=== PATIENT | female | born 1970 ===

== ENCOUNTER → 2022-04-09 11:08 | Outpatient (CLI) | payer OTHER, SELFPAY ==
--- NOTE | 2022-04-09 11:13 | DI.MRI.S_ITS ---
PROCEDURE: MR HEAD/BRAIN WO CON INDICATIONS: ATAXIA/DYSARTHIA TECHNIQUE: Noncontrast axial T1 spin echo, axial T2 fast spin echo, sagittal and axial FLAIR, coronal T2 fast spin echo, axial gradient echo, axial diffusion and ADC through the brain. COMPARISON: None. FINDINGS: Image quality: Excellent. CSF Spaces: Basal cisterns are patent. No extra-axial fluid collections. Ventricles are normal in size and shape. Brain: Mild global cerebral volume loss and moderate chronic microvascular ischemic changes. No intracranial masses or hemorrhage. Parra/white matter interface is normal. Brainstem appears normal. Diffusion-weighted images demonstrate no acute ischemic insult. No chronic ischemic insults. Normal intravascular flow voids are present. Skull and face: Calvarium has normal marrow signal. Orbits appear normal. Sinuses: Sinuses and mastoids are clear. IMPRESSION: No acute intracranial abnormality. Mild global cerebral volume loss and moderate chronic microvascular ischemic changes. Dictated by: Kevin Li M.D. on 04/09/2022 at 13:32 Approved by: Kevin Li M.D. on 04/09/2022 at 13:35
== END ==
DX: R27.0 Ataxia, unspecified (principal); R47.1 Dysarthria and anarthria
CPT/HCPCS: 70551